=== PATIENT | female | born 1980 | race Caucasian/White ===

== ENCOUNTER → 2021-07-21 14:21 | Outpatient (BNVA) | payer BC, SELFPAY | PROVIDERS: Family Provider Family Medicine; PCP Family Medicine; Visit Provider Nurse Practitioner Women's Health | DX: N93.0 Postcoital and contact bleeding (principal); Z97.5 Presence of (intrauterine) contraceptive device | CPT/HCPCS: 76830 ==

== ENCOUNTER → 2022-07-25 10:44 | Outpatient (BNVA) | payer BC, SELFPAY | PROVIDERS: Family Provider Family Medicine; PCP Family Medicine; Visit Provider Nurse Practitioner Women's Health | DX: Z12.4 Encounter for screening for malignant neoplasm of cervix (principal) | CPT/HCPCS: 87624 ==

== ENCOUNTER 2022-09-11 14:22 | Outpatient (CLI) | payer BC, SELFPAY ==
--- NOTE | 2022-09-11 14:31 | MM_ITS ---
WS: [id number] Bilateral screening 3D tomosynthesis digital mammogram, 09/11/2022 Clinical Data: Z12.39 - Encounter for other screening for malignant neop... Comparison: None. Findings: The breast parenchymal pattern shows heterogeneous density. No spiculated masses or clustered calcifi cations are seen. There are no secondary signs of carcinoma. MM/[place] [id number] Impression: 1. Negative bilateral mammogram with no prior exam for review. 2. Recommend annual screening mammograms. BIRADS: 1-Negative FOLLOW UP: 1 Year Follow-up The CAD mechanical and auto body car checker was used.
== END 2022-09-11 14:23 | disposition home or self-care (01) ==
LOC: RAD 14:23
PROVIDERS: PCP Family Medicine; Visit Provider Nurse Practitioner Women's Health
DX: Z12.31 Encounter for screening mammogram for malignant neoplasm of breast (principal)
CPT/HCPCS: 77063; 77067

== ENCOUNTER 2024-10-16 07:47 | Outpatient (CLI) | payer BC, SELFPAY ==
--- NOTE | 2024-10-16 07:50 | MM_ITS ---
WS: [id number] SCREENING DIGITAL BREAST TOMOSYNTHESIS MAMMOGRAM WITH CAD HISTORY: SCREENING COMPARISON: 09/11/2022 Bilateral CC and MLO with tomosynthesis and synthetic mammography submitted. Computer aided detection analyzed. Breast composition: The breasts are heterogeneously dense, which may obscure small masses. New groupe d calcifications LEFT breast at a middle to posterior depth. There is a small amount of associated so ft tissue with these calcifications. Area of interest measures approximately 6 x 5 x 5 mm. Calcificat ions are very slightly amorphous. No additional abnormality. RIGHT breast is negative. MM/MM [facility] tomosynthesis [id number] IMPRESSION: BI-RADS: 0 - Incomplete: Need additional imaging evaluation FOLLOW UP: Need Additional Imaging LEFT BREAST: Magnification views of suspicious calcification CC and MLO. True M L. If this soft tissue component remains ultrasound may also be of benefit.
== END 2024-10-16 07:48 | disposition home or self-care (01) ==
LOC: RAD 07:48
PROVIDERS: PCP Family Medicine; Visit Provider Family Medicine
DX: Z12.31 Encounter for screening mammogram for malignant neoplasm of breast (principal); R92.333 Mammographic heterogeneous density, bilateral breasts; R92.1 Mammographic calcification found on diagnostic imaging of breast; R92.8 Other abnormal and inconclusive findings on diagnostic imaging of breast
CPT/HCPCS: 77063; 77067

== ENCOUNTER 2024-11-03 08:51 | Outpatient (CLI) | payer BC, SELFPAY ==
--- NOTE | 2024-11-03 | MM_ITS ---
WS: [id number] ADDITIONAL VIEWS LEFT MAMMOGRAM with tomosynthesis. LEFT BREAST ULTRASOUND HISTORY: ABNORMAL MAMMOGRAM COMPARISON: 10/16/2024, 09/11/2022 LEFT MAMMOGRAM: Magnification views and true ML with tomosynthesis and synthetic mammography. Calcifications persist and are grouped in the posterior LEFT breast near 4:00. Cluster of calcificati ons and increased soft tissue measures 3 x 4 x 5 mm. Majority of these calcifications are round but s ome are also pleomorphic. There may be an associated soft tissue mass. Ultrasound will follow. No lay ering of calcifications on the ML projection. LEFT BREAST ULTRASOUND 2-D and color Doppler imaging submitted. Ultrasound directed to 3:00 in the LEFT breast. At 3:00 there is an ovoid mass with central vasculari ty measuring 0.6 x 0.6 x 0.3 cm. Within this mass there are a few tiny foci which could be the calcif ications noted on the mammogram. This may be a small lymph node. There is no shadowing or spiculated margin. MM/MM diag [place] tomosynthesis [id number] IMPRESSION: BI-RADS: 4- Suspicious Finding - Biopsy Should be Considered FOLLOW UP: Biopsy Recommended 1. Stereotactic LEFT breast biopsy recommended. New cluster of calcifications at 3:00. 2. Mass in the LEFT breast at 3:00 seen by ultrasound may contain central calc ifications. Ultrasound and mammographic findings are not completely concordant. As we can better visualize the calcifications on mammogram stereotactic biopsy is recommended. If for some reason stereotactic biopsy is not possible we coul d proceed with the ultrasound biopsy and verify position of the biopsy with a c lip. Notified Aleksandar Alaniz MD at 11/03/2024 9:49 AM.
--- NOTE | 2024-11-03 09:01 | US_ITS ---
WS: [id number] ADDITIONAL VIEWS LEFT MAMMOGRAM with tomosynthesis. LEFT BREAST ULTRASOUND HISTORY: ABNORMAL MAMMOGRAM COMPARISON: 10/16/2024, 09/11/2022 LEFT MAMMOGRAM: Magnification views and true ML with tomosynthesis and synthetic mammography. Calcifications persist and are grouped in the posterior LEFT breast near 4:00. Cluster of calcificati ons and increased soft tissue measures 3 x 4 x 5 mm. Majority of these calcifications are round but s ome are also pleomorphic. There may be an associated soft tissue mass. Ultrasound will follow. No lay ering of calcifications on the ML projection. LEFT BREAST ULTRASOUND 2-D and color Doppler imaging submitted. Ultrasound directed to 3:00 in the LEFT breast. At 3:00 there is an ovoid mass with central vasculari ty measuring 0.6 x 0.6 x 0.3 cm. Within this mass there are a few tiny foci which could be the calcif ications noted on the mammogram. This may be a small lymph node. There is no shadowing or spiculated margin. US/US breast LT limited* [id number] IMPRESSION: BI-RADS: 4- Suspicious Finding - Biopsy Should be Considered FOLLOW UP: Biopsy Recommended 1. Stereotactic LEFT breast biopsy recommended. New cluster of calcifications at 3:00. 2. Mass in the LEFT breast at 3:00 seen by ultrasound may contain central calc ifications. Ultrasound and mammographic findings are not completely concordant. As we can better visualize the calcifications on mammogram stereotactic biopsy is recommended. If for some reason stereotactic biopsy is not possible we coul d proceed with the ultrasound biopsy and verify position of the biopsy with a c lip. Notified Aleksandar Alaniz MD at 11/03/2024 9:49 AM.
== END 2024-11-03 08:52 | disposition home or self-care (01) ==
PROVIDERS: PCP Family Medicine; Visit Provider Family Medicine
DX: R92.8 Other abnormal and inconclusive findings on diagnostic imaging of breast (principal); R92.1 Mammographic calcification found on diagnostic imaging of breast; N63.25 Unspecified lump in the left breast, overlapping quadrants
CPT/HCPCS: 76642; 77061; G0279

== ENCOUNTER 2024-11-11 14:00 | Outpatient (CLI) | payer BC, SELFPAY ==
--- NOTE | 2024-11-11 | MM_ITS ---
WS: [id number] STEREOTACTIC LEFT BREAST BIOPSY WITH VACUUM ASSISTANCE HISTORY: Indeterminate calcifications LEFT breast at 4:00. COMPARISON: 11/03/2024, 10/16/2024, 09/11/2022 Procedure, risks and complications were explained to the patient. Medications and prior radiographs are reviewed. LEFT breast calcifications are located. Calcifications are posterior at 4:00. Calcifications are targeted in the craniocaudal projection. The skin is cleansed with ChloraPrep and anesthetized with 1% buffered lidocaine. Deeper soft tissues anesthetized with a combination of lidocaine and epinephrine. Small dermatome is made. Needle advanced into the LEFT breast. Stereotactic imaging reveals appropriate positioning adjacent calcifications. Multiple vacuum-assisted core biopsies are obtained. No complications were encountered. On the initial biopsy no definite calcifications were identified. There are a few very faint possible calcifications. Retargeting been performed to obtain better sampling of the calcifications. Post biopsy specimen radiograph reveals very faint calcifications. These calcifications were very fine on the prior images and may have crushed. Radiographically there is been a decrease in the amount of calcifications at the biopsy site. Biopsy clip is placed in the cavity. Post imaging reveals good placement of the clip. No migration. Pressures held for approximately 15 minutes. No bleeding. Dressing applied. Patient discharged with no complications. There is no bleeding. With any questions or complications patient is to return. MM/[place] [id number] IMPRESSION: 1. Uncomplicated LEFT breast stereotactic biopsy. 2. Very faint calcifications and foci are noted within the specimen radiograph s. 3. Post procedure imaging reveals the biopsy clip in satisfactory position. Th ere has been a decrease in the number of calcifications suggesting calcificatio ns were obtained during the biopsy. Pathology: Benign fatty breast parenchyma with very focal fibrocystic changes. Adenosis, cyst formation and fibrosis. Rare microcalcifications are identified. No atypia or malignancy. RECOMMENDATION: Diagnostic LEFT mammogram in 6 months. Imaging findings and pathology findings are concordant. Recommend diagnostic ma mmogram in 6 months to document no progression or new calcifications developing .
== END 2024-11-11 14:01 | disposition home or self-care (01) ==
PROVIDERS: PCP Family Medicine; Visit Provider Family Medicine
DX: R92.8 Other abnormal and inconclusive findings on diagnostic imaging of breast (principal); N60.22 Fibroadenosis of left breast; R92.1 Mammographic calcification found on diagnostic imaging of breast; N60.12 Diffuse cystic mastopathy of left breast
CPT/HCPCS: 19081; 77065; 88305